=== PATIENT | male | born 1965 | race Caucasian/White ===

== ENCOUNTER 2019-07-29 01:25 | Emergency (ER) | payer OTHER ==
[~2019-07-29] VITALS: Ht 172.7 cm; Wt 77.0 kg
[2019-07-29] MEDS ORDERED: SODIUM CHLORIDE 0.9% 1,000 ML IV ONE (01:44)
[2019-07-29] MEDS ORDERED: LORAZEPAM 1MG TABLET PO ONE (01:45)
[2019-07-29 02:10] LABS: BASOPHILS % 0.3 % (0.0-2.0); EOSINOPHILS % 0.4 % (0.0-5.0); HEMATOCRIT. 38.5 % (42.0-52.0); HEMOGLOBIN. 13.6 g/dL (14.0-18.0); LYMPHOCYTES % 7.7 % (20.0-50.0); MEAN CORPUSCULAR HEMOGLOBIN 35.2 pg (28.0-32.0); MEAN CORPUSCULAR VOLUME 99.7 fL (80.0-94.0); MEAN PLATELET VOLUME 6.8 fl (7.4-10.4); MONOCYTES % 6.9 % (2.0-8.0); NEUTROPHILS % 84.7 % (40.0-76.0); PLATELET 177 x1000/uL (130-400); RED BLOOD CELL COUNT 3.86 mill/uL (4.7-6.1); RED CELL DISTRIBUTION WIDTH 14.9 % (11.6-14.6)
[2019-07-29 02:25] LABS: CHLORIDE 104 mEq/L (98-107)
[2019-07-29 02:29] LABS: ETHANOL BLOOD < 10 mg/dL
[2019-07-29 02:53] LABS: CLARITY URINE CLEAR (CLEAR); COLOR URINE YELLOW (YELLOW); KETONES URINE NEGATIVE (NEGATIVE); LEUKOCYTE ESTERASE URINE NEGATIVE (NEGATIVE); NITRITE URINE NEGATIVE (NEGATIVE); OCCULT BLOOD URINE NEGATIVE (NEGATIVE); PH URINE 5.5 (4.5-8.0); PROTEIN URINE 1+ (NEGATIVE); SPECIFIC GRAVITY URINE 1.027 (1.005-1.030); UROBILINOGEN URINE 0.2 E.U./dL (0.2-1.0)
[2019-07-29 05:17] VITALS: BP 150/98
== END 2019-07-29 05:57 | disposition short-term general hospital (02) ==
LOC: ER 01:25
DX: S00.81XA Abrasion of other part of head, initial encounter (principal); S00.211A Abrasion of right eyelid and periocular area, initial encounter; F10.10 Alcohol abuse, uncomplicated; Z98.890 Other specified postprocedural states; X58.XXXA Exposure to other specified factors, initial encounter; Y93.89 Activity, other specified; Y92.89 Other specified places as the place of occurrence of the external cause; Y99.8 Other external cause status; Y90.0 Blood alcohol level of less than 20 mg/100 ml
CPT/HCPCS: 36415; 70450; 70486; 80053; 80305; 80320; 81003; 82962; 85025; 93005; 96360; 96361; 99285; J7030; G0480

== ENCOUNTER 2019-10-03 15:08 | Inpatient (IN) | payer OTHER ==
[~2019-10-03] VITALS: Ht 167.6 cm; Wt 67.6 kg
[2019-10-03] MEDS ORDERED: LEVETIRACETAM 1000MG/100ML 100 ML IV ONE (15:45)
[2019-10-03 17:24] LABS: BASOPHILS % 0.2 % (0.0-2.0); EOSINOPHILS % 0.2 % (0.0-5.0); HEMATOCRIT. 44.1 % (42.0-52.0); HEMOGLOBIN. 15.7 g/dL (14.0-18.0); LYMPHOCYTES % 8.7 % (20.0-50.0); MEAN CORPUSCULAR HEMOGLOBIN 35.2 pg (28.0-32.0); MEAN CORPUSCULAR VOLUME 98.8 fL (80.0-94.0); MEAN PLATELET VOLUME 7.3 fl (7.4-10.4); MONOCYTES % 9.5 % (2.0-8.0); NEUTROPHILS % 81.4 % (40.0-76.0); PLATELET 153 x1000/uL (130-400); RED BLOOD CELL COUNT 4.46 mill/uL (4.7-6.1); RED CELL DISTRIBUTION WIDTH 14.8 % (11.6-14.6)
[2019-10-03 17:25] LABS: CHLORIDE 102 mEq/L (98-107)
[2019-10-03 17:29] LABS: ETHANOL BLOOD < 10 mg/dL
[2019-10-03 17:30] LABS: D-DIMER 0.77 mg/L FEU (<0.50)
[2019-10-03 17:33] LABS: CREATINE KINASE 279 IU/L (39-308)
[2019-10-03] MEDS ORDERED: CHLORDIAZEPOXIDE 25MG CAPSULE PO ONE (17:45)
[2019-10-03] MEDS ORDERED: POTASSIUM CHLORIDE 20MEQ TABLET SR PO ONE (17:45)
[2019-10-03] MEDS ORDERED: KCL 10MEQ/50ML PREMIX 50 ML IV ONE (17:45)
[2019-10-03 20:51] LABS: CLARITY URINE CLOUDY (CLEAR); COLOR URINE YELLOW (YELLOW); KETONES URINE 1+ (NEGATIVE); LEUKOCYTE ESTERASE URINE TRACE (NEGATIVE); NITRITE URINE NEGATIVE (NEGATIVE); OCCULT BLOOD URINE TRACE (NEGATIVE); PH URINE 6.5 (4.5-8.0); PROTEIN URINE 2+ (NEGATIVE); SPECIFIC GRAVITY URINE 1.036 (1.005-1.030)
[2019-10-03 21:15] LABS: METHADONE URINE SCREEN NEGATIVE (NEGATIVE)
[2019-10-03 21:16] LABS: *AMPHETAMINES SCREEN URINE NEGATIVE (NEGATIVE); *BARBITURATES SCREEN URINE NEGATIVE (NEGATIVE); *COCAINE SCREEN URINE NEGATIVE (NEGATIVE); CANNABINOID URINE SCREEN NEGATIVE (NEGATIVE); OPIATES URINE SCREEN PRESUMTIVE POSITIVE (NEGATIVE); PHENCYCLIDINE URINE SCREEN NEGATIVE (NEGATIVE)
[2019-10-03 21:18] LABS: *BENZODIAZEPINES SCREEN URINE PRESUMTIVE POSITIVE (NEGATIVE)
[2019-10-03] MEDS ORDERED: LORAZEPAM 2MG/ML CPJ IV PRN (21:45)
[2019-10-03] MEDS ORDERED: FAMOTIDINE 20MG TABLET PO PRN (21:45)
[2019-10-03 22:09] LABS: CHLORIDE 107 mEq/L (98-107)
[2019-10-03 23:59] VITALS: BP 141/87
[2019-10-04] VITALS: BP 141/87
[2019-10-04] MEDS ORDERED: CLONIDINE 0.1MG TABLET PO PRN
[2019-10-04] MEDS ORDERED: MAGNESIUM/ALUMINUM HYDROXIDE/SIMETHICONE 30ML UDC PO PRN
[2019-10-04] MEDS ORDERED: GUAIFENESIN 200MG/10ML SUGAR FREE UDC PO PRN
[2019-10-04] MEDS ORDERED: DIPHENHYDRAMINE 50MG/ML VIAL IV PRN
[2019-10-04] MEDS ORDERED: ONDANSETRON HCL 4MG/2ML INJ IV PRN
[2019-10-04] MEDS ORDERED: CHLORDIAZEPOXIDE 25MG CAPSULE PO PRN
[2019-10-04] MEDS ORDERED: ZOLPIDEM TARTRATE 5MG TABLET PO PRN
[2019-10-04] MEDS ORDERED: ACETAMINOPHEN 325MG TABLET PO PRN ×2
[2019-10-04] MEDS ORDERED: MVI, ADULT NO.1 10 ML, FOLIC ACID 1 MG, THIAMINE HCL 100 MG in SODIUM CHLORIDE 0.9% 1,0... IV SCH ×4 (01:00)
[2019-10-04] MEDS ORDERED: MVI, ADULT NO.1 10 ML, FOLIC ACID 1 MG in SODIUM CHLORIDE 0.9% 1,000 ML IV SCH ×3 (01:00)
[2019-10-04 04:00] VITALS: BP 160/95
[2019-10-04] MEDS: SODIUM CHLORIDE 0.9% INJ 3ML FLUSH IVF SCH ×2 (06:00→20:11)
[2019-10-04 08:00] VITALS: BP 115/73
[2019-10-04] MEDS ORDERED: LEVETIRACETAM 500MG TABLET PO SCH (09:00)
[2019-10-04] MEDS: CHLORDIAZEPOXIDE 25MG CAPSULE PO SCH ×2 (13:44→20:11)
[2019-10-04] MEDS: PANTOPRAZOLE SODIUM 40 MG/VIAL IV SCH (19:54)
[2019-10-04 20:00] VITALS: BP 137/93
[2019-10-05] VITALS: BP 140/92
[2019-10-05 04:00] VITALS: BP 136/85
[2019-10-05] MEDS: CHLORDIAZEPOXIDE 25MG CAPSULE PO SCH ×2 (05:37→14:54)
[2019-10-05] MEDS: SODIUM CHLORIDE 0.9% INJ 3ML FLUSH IVF SCH ×2 (05:37→14:00)
[2019-10-05] MEDS ORDERED: THIAMINE HCL 100MG TABLET PO SCH (09:00)
[2019-10-05] MEDS ORDERED: FOLIC ACID 1MG TABLET PO SCH (09:00)
[2019-10-05] MEDS ORDERED: MULTIVITAMINS,THER W-MINERALS TABLET PO SCH (09:00)
[2019-10-05] MEDS: PANTOPRAZOLE SODIUM 40 MG/VIAL IV SCH (09:08)
[2019-10-05 12:00] VITALS: BP 135/93
[2019-10-05 14:07] VITALS: BP 135/93
== END 2019-10-05 15:04 | disposition home or self-care (01) | DRG 101 ==
LOC: ER 15:08 → CANBEDREQ 17:08 → ENRESERV 23:33 → 7WST 10-04 00:04
PROVIDERS: ADMIT Internal Medicine; ATTEND Internal Medicine
DX: G40.509 Epileptic seizures related to external causes, not intractable, without status epilepticus (principal); D72.810 Lymphocytopenia; Y90.9 Presence of alcohol in blood, level not specified; F10.10 Alcohol abuse, uncomplicated; I10 Essential (primary) hypertension; E87.6 Hypokalemia; Z20.828 Contact with and (suspected) exposure to other viral communicable diseases; E87.8 Other disorders of electrolyte and fluid balance, not elsewhere classified; Z90.49 Acquired absence of other specified parts of digestive tract
CPT/HCPCS: 36415; 71045; 80053; 80305; 80320; 81003; 82550; 82728; 83605; 83615; 83880; 84145; 84484; 85025; 85379; 85384; 86140; 87635; 87804; 93005; 96365; 99291; C9113; J1953; J3411; J3480; J3490; J7030; G0480